=== PATIENT | male | born 1935 | race Caucasian/White ===

== ENCOUNTER 2019-01-27 22:09 | Emergency (ER) | payer MEDICARE, OTHER ==
[~2019-01-27] VITALS: Ht 185.4 cm; Wt 83.9 kg
[2019-01-28] MEDS ORDERED: LISINOPRIL5 MG PO (00:17)
== END 2019-01-28 00:37 | disposition home or self-care (01) ==
LOC: ED 22:09
DX: Z76.0 Encounter for issue of repeat prescription (principal); I10 Essential (primary) hypertension; Z90.49 Acquired absence of other specified parts of digestive tract
CPT/HCPCS: 99281